=== PATIENT | male | born 1995 | race Caucasian/White ===

== ENCOUNTER 2020-01-06 00:32 | Emergency (ER) | payer OTHER, SELFPAY ==
[2020-01-06 00:33] VITALS: BP 163/102; PULSE 64; RESP 16; TEMP 36.8; O2SAT 100; BMI 24.5
--- NOTE | 2020-01-06 00:42 | ED.VIS.GEN ---
History of Present Illness Chief Complaint: Lower Extremity Injury Informant: Patient Narrative: 24-year-old male presents with left ankle injury. States that approximately 3 and half weeks ago he missed the last step on a ladder and turned his ankle over. States that since that time he felt like he would have more improvement than he does. States he has pain when he is climbing stairs or trying to do a light jog. States it is on the dorsal aspect of his ankle. States it is aching in nature. No relieving factors. Rates the pain as a 6 out of 10. Denies any numbness or tingling. Past Medical History - Allergies and Home Meds Allergies/Adverse Reactions: Allergies No Known Allergies Allergy (Verified 01/06/20 00:35) Past Medical History: None Surgical History: no surgical history Lives: Alone Smoking Status: Current every day smoker Alcohol: None Drugs: None Review of Systems General: Denies: Chills, Fever, Sweats Eyes: Denies: Visual changes - bilaterally, Diplopia ENT: Denies: Rhinorrhea, Sore throat Cardiovascular: Denies: Chest pain, Palpitations Respiratory: Denies: Dyspnea, Cough, Dyspnea on exertion Gastrointestinal: Denies: Abdominal pain, Nausea, Vomiting, Diarrhea, Melena, Hematochezia Genitourinary: Denies: Dysuria, Hematuria, Frequency Musculoskeletal: Reports: Arthralgias. Denies: Back pain, Extremity Pain Skin: Denies: Rash, Wounds Neurological: Denies: Headache, Weakness, Numbness Physical Exam Vital Signs/Narrative: Vital Signs Temp Pulse Resp BP Pulse Ox 01/06/20 00:33 98.3 F 64 16 163/102 H 100 General: Well nourished, Well developed, No Acute Distress Head: Normocephalic, Atraumatic Eyes: Perrl, EOMI ENT: Moist mucous membranes, No rhinorrhea Neck: Supple, Nontender Cardiovascular: Regular rate, Regular rhythm, No murmurs Respiratory: No distress, CTA bilaterally, Chest nontender Abdomen: Soft, Nontender, Nondistended, Normal bowel sounds Back: Nontender, Normal Inspection Extremities: No edema, - - Tenderness to palpation at the ear aspect of the ankle. No malleolar tenderness. Full range of motion. Strong palpable pulses. Sensation intact. Skin: Normal color, No rash Neurological: Alert, Oriented x3, Cranial nerves II-XII grossly intact, Normal Strength, Normal Sensation Psychological: Normal affect, Normal Mood Diagnostic/Tx/Re-eval Clinical Impression(s) from Imaging Studies Ankle X-Ray 01/06/20 00:55 IMPRESSION: Normal left ankle. at 0127 Reported and signed by: Yadiel Perea MD Electronically Signed: Yadiel Perea MD at 1:25 EDT Tel , Service support , - Medical Decision Making X-ray negative. Patient placed in an Kendrick wrap. On rest, ice, compression, elevation. Advised on Motrin and Tylenol for pain. Will be given foot and ankle follow-up. Asked to return for new or worsening symptoms. Discharged home in stable condition. ED Disposition - Plan for ED Patient: Disposition: Home or Assisted Living Diagnosis: Ankle sprain Instructions: ED Sprain Ankle W X Ray Referrals: Care Physician,No Primary [Primary Care Provider] - Lacho Calzada DPM [STAFF PHYSICIAN] -
--- NOTE | 2020-01-06 00:55 | RAD_ITS ---
HISTORY: SLIPPED OFF LADDER AND INJURED 3 1/2 WEEKS AGO. PATIENT FEELS NOT IMPROVING. PAIN IS ANTERIOR AT ANKLE JOINT COMPARISON: None FINDINGS: # of images incl. paperwork: 3 XR Ankle Min 3 Views : No fracture or osseous abnormality. The ankle mortise is intact. Soft tissue swelling is not seen. RAD/Ankle min 3 Views IMPRESSION: Normal left ankle. at 0127 Reported and signed by: Yadiel Perea MD Electronically Signed: Yadiel Perea MD at 1:25 EDT Tel , Service support ,
[2020-01-06 01:40] VITALS: RESP 16
== END 2020-01-06 01:40 | disposition home or self-care (01) ==
PROVIDERS: Emergency Provider Emergency Medicine
DX: S93.402A Sprain of unspecified ligament of left ankle, initial encounter (principal); W11.XXXA Fall on and from ladder, initial encounter; F17.200 Nicotine dependence, unspecified, uncomplicated
CPT/HCPCS: 73610; 99282